=== PATIENT | female | born 1955 | race Two or more races ===

== ENCOUNTER 2020-04-26 07:02 | Day surgery (SDC) | payer OTHER | END 2020-04-26 12:55 | disposition home or self-care (01) | LOC: AMB-ENDOS 07:02 | PROVIDERS: ATTEND Surgery | DX: K62.89 Other specified diseases of anus and rectum (principal) ==

== ENCOUNTER 2020-06-06 05:57 | Day surgery (SDC) | payer OTHER ==
[2020-06-06] MEDS ORDERED: PERCOCET 5-3251 EACH PO (09:59)
[2020-06-06] MEDS ORDERED: KETO10TA2 PO (09:59)
[2020-06-06] MEDS ORDERED: RECTICARE30 GM TOP (10:00)
== END 2020-06-06 17:25 | disposition home or self-care (01) ==
LOC: CIR.AMB 05:57
PROVIDERS: ATTEND Surgery
DX: K64.8 Other hemorrhoids (principal); K64.4 Residual hemorrhoidal skin tags; Z20.828 Contact with and (suspected) exposure to other viral communicable diseases